=== PATIENT | male | born 1980 | race American Indian/Alaskan Native ===

== ENCOUNTER 2020-10-03 04:06 | Emergency (ER) | payer SELFPAY ==
--- NOTE | 2020-10-03 04:09 | DI.RAD.S_ITS ---
PROCEDURE: XR CHEST 1V INDICATIONS: Cough up blood TECHNIQUE: One view of the chest was acquired. COMPARISON: None. FINDINGS: Surgical changes and devices: None. Lungs and pleura: Lungs are clear. No pleural effusions or pneumothorax. Mediastinum: Mediastinal contours appear normal. Heart size is normal. Bones and chest wall: No suspicious bony lesions. Overlying soft tissues appear unremarkable. IMPRESSION: No acute cardiopulmonary disease process. Dictated by: Ilda Tony MD, PhD on 10/03/2020 at 9:02 Approved by: Ilda Tony MD, PhD on 10/03/2020 at 9:07
--- NOTE | 2020-10-03 04:09 | ED_ITS ---
HPI - General Adult General Chief complaint: Upper Respiratory Symptoms Stated complaint: Coughing up red/blood like Time Seen by Provider: 10/03/20 04:08 Source: patient Mode of arrival: Ambulatory Limitations: no limitations History of Present Illness HPI narrative: 40-year-old male with a history of high blood pressure here for evaluation of 1-2 days of a cough. No fevers. No sinus congestion. Slight sore throat. Was seen at the [facility] yesterday where he was evaluated. Was tested for COVID-19 which the patient reports was negative. He was given an albuterol inhaler and a spacer. No antibiotics. Returns today because this morning his cough is continued in he had a slight red tinge to the sputum. Related Data Previous Rx's Medication Instructions Recorded ibuprofen 600 mg PO Q6HP PRN #20 tab 10/19/16 meclizine 25 mg PO Q6HP PRN #20 tab 10/23/16 losartan 50 mg PO QDAY #30 tab 03/18/17 Allergies Allergy/AdvReac Type Severity Reaction Status Date / Time lisinopril [LISINOPRIL] AdvReac Intermediate cough Unverified 01/26/18 12:56 Review of Systems Constitutional Constitutional: Denies fever(s) and Denies headache(s) ENT Ears, Nose, Mouth, and Throat: Denies headache(s) and Reports sore throat Cardiovascular Cardiovascular: Denies chest pain and Denies dyspnea Respiratory Respiratory: Reports cough, Denies dyspnea and Reports wheezing Gastrointestinal Gastrointestinal: Denies abdominal pain Integumentary/Breasts Skin/Breast: Denies lesions and Denies rash Neurologic Neurologic: Denies headache(s) Hematologic/Lymphatic Hematologic/Lymphatic: Denies easy bleeding and Denies easy bruising Allergic/Immunologic Allergic/Immunologic: Denies urticaria and Reports wheezing Patient History Medical History Back pain Costochondritis, acute Elevated blood pressure reading without diagnosis of hypertension Vertigo Social History Smoking Status: Never smoker Exam Initial Vital Signs Initial Vital Signs: Vital Signs Temperature 98.9 F 10/03/20 04:15 Pulse Rate 103 H 10/03/20 04:15 Respiratory Rate 16 10/03/20 04:15 Blood Pressure 157/107 H 10/03/20 04:15 Pulse Oximetry 97 10/03/20 04:15 Const General: cooperative and comfortable Limitations: mental status not altered HENMT Head: normal to inspection and normocephalic Resp Effort & Inspection: normal respiratory effort Auscultation: wheezes Cardio Rate: tachycardic Rhythm: regular rhythm Skin Lesions: no lesions Rashes: no rashes Extrem General: capillary refill normal and No edema Psych Appearance: grossly normal and well kempt Course Orders Ordered: ED Orders 10/03/20 04:09 XR chest 1V Stat Vital Signs Vital signs: Vital Signs - 8 hr 10/03/20 04:15 Temperature 98.9 F Pulse Rate 103 H Respiratory Rate 16 Blood Pressure 157/107 H Pulse Oximetry 97 Medical Decision Making Imaging Data Chest x-ray: Attestation: I personally reviewed and interpreted this imaging study as f tammie: My Impression: No pneumonia, no pneumothorax MDM Narrative Medical decision making narrative: Patient is not hypoxic. Does have bilateral wheezing in the lung bases. He states that the albuterol inhaler that he received yesterday does help his symptoms. He was told by his doctor that he may have asthma however he does not have a specific diagnosis of this. He is somewhat hypertensive however is not taking his prescribed medications. Has been on lisinopril in the past but that caused a cough so he stopped that medicine several years ago. He is not having any fevers. He is not coughing up bloody sputum. He states that it was a red tinge to the sputum. I do suspect bronchitis. He states that that is with the provider yesterday told him. No indication for antibiotics. He will continue with the albuterol as needed. He was given return precautions. He expressed understanding agreement. Discharge Plan Departure Patient Disposition: Home Clinical Impression: Bronchitis Instructions: DI for Acute Bronchitis Activity Restrictions/Additional Instructions: recommend that you continue with the inhaler do a prescribed as directed as needed. You can purchase over the counter cough suppressant such as dextromethorphan or guaifenesin. Contact your primary provider for follow-up. Return to the emergency department for any new or worsening symptoms Prescriptions: No Action ibuprofen 600 MG tablet 600 mg PO Q6HP PRNQty: 20 RF: 0 meclizine 25 MG tablet 25 mg PO Q6HP PRNQty: 20 RF: 0 losartan 50 MG tablet 50 mg PO QDAY Qty: 30 RF: 1
[2020-10-03 04:15] VITALS: BP 157/107; PULSE 103; RESP 16; TEMP 37.2; O2SAT 97; BMI 31.4
[2020-10-03 04:22] VITALS: BP 152/104; PULSE 98; O2SAT 96
== END 2020-10-03 04:32 | disposition home or self-care (01) ==
PROVIDERS: Emergency Provider Emergency Medicine
DX: J40 Bronchitis, not specified as acute or chronic (principal); I10 Essential (primary) hypertension
CPT/HCPCS: 71045; 99283

== ENCOUNTER 2022-08-05 19:33 | Emergency (ER) | payer SELFPAY ==
[2022-08-05 19:45] VITALS: BP 157/103; PULSE 113; RESP 22; TEMP 36.3; O2SAT 98; BMI 33.5
--- NOTE | 2022-08-05 20:08 | DI.RAD.S_ITS ---
PROCEDURE: XR CHEST 1V INDICATIONS: Cough TECHNIQUE: One view of the chest was acquired. COMPARISON: Merged With [facility], CR, XR CHEST 1V, 10/03/2020, 4:13. FINDINGS: Surgical changes and devices: None. Lungs and pleura: Lungs are clear. No pleural effusions or pneumothorax. Mediastinum: Mediastinal contours appear normal. Heart size is normal. Bones and chest wall: No suspicious bony lesions. Overlying soft tissues appear unremarkable. IMPRESSION: No acute cardiopulmonary pathology. Dictated by: Kennedy Urbina M.D. on 08/05/2022 at 20:46 Approved by: Kennedy Urbina M.D. on 08/05/2022 at 20:46
--- NOTE | 2022-08-05 20:09 | ED.URI ---
HPI - URI/Sore Throat General Chief Complaint: Upper Respiratory Symptoms Stated Complaint: Tachy/SOB Time Seen by Provider: 08/05/22 20:02 Source: patient and EMS Mode of arrival: EMS History of Present Illness HPI Narrative: Patient here for cough cold congestion nausea and vomiting. Patient states his family has been sick for the past week. His kids are just getting over this illness. Patient started with cough cold congestion 1 week ago. He did not and family did not seek medical attention or any viral testing. Patient started with nausea and vomiting today. He gets dizzy when he vomits. However feels better with the dizziness. Still feels nauseous. Denies any chest pain. Blood pressure noted. He has been off his losartan for over a year. He does have a clinic but has not followed up for refills. He is on losartan 50 mg daily. Patient seen here September 2020 with similar complaints of cough and high blood pressure. Also had tachycardia on that visit as well. Was discharged home with diagnosis of bronchitis. Was given prescription of meclizine ibuprofen and refill of losartan. Related Data Previous Rx's Medication Instructions Recorded ibuprofen 600 mg tablet 600 mg PO Q6HP PRN #20 tabs 10/19/16 meclizine 25 mg tablet 25 mg PO Q6HP PRN #20 tabs 10/23/16 losartan 50 mg tablet 50 mg PO QDAY #30 tabs 03/18/17 losartan 50 mg tablet 50 mg PO DAILY #30 tabs 08/05/22 ondansetron 4 mg disintegrating 4 mg PO Q8H PRN nausea and 08/05/22 tablet vomiting #10 tabs Allergies Allergy/AdvReac Type Severity Reaction Status Date / Time lisinopril [LISINOPRIL] AdvReac Intermediate cough Verified 08/05/22 22:12 Review of Systems Review of Systems Narrative: GENERAL: Positive for chills, fatigue, malaise, fever, sweats. HEENT: Denies sinus pain, ear pain, sore throat RESPIRATORY: Denies dyspnea, positive for cough CARDIOVASCULAR: Denies chest pain, palpitations GASTROINTESTINAL: Positive for nausea, vomiting, negative for abdominal pain : Denies dysuria, frequency, hematuria MUSCULOSKELETAL: Positive for muscle or bony pain SKIN: Denies rash, skin lesions NEUROLOGIC: Denies weakness, numbness ROS Unobtainable: All systems reviewed & are unremarkable except as noted in HPI and below Patient History Medical History Back pain Costochondritis, acute Elevated blood pressure reading without diagnosis of hypertension Vertigo Social History Smoking Status: Never smoker Smoking Status: Never smoker Substance Use Type: marijuana Exam Narrative Exam Narrative: GENERAL: in no distress, not toxic not dyspneic HEAD: Normocephalic. EYES: Pupils equal round No scleral icterus. ENT: Mucous membranes moist. NECK: Trachea midline. CARDIOVASCULAR: Regular rate and rhythm without murmurs RESPIRATORY: Clear to auscultation. Breath sounds equal bilaterally. No wheezes, rales, or rhonchi. GASTROINTESTINAL: Abdomen soft, non-tender EXTREMITIES: No gross deformities. BACK: No flank tenderness. NEURO: AOx4. SKIN: Warm and dry PSYCH: Not anxious, is cooperative Initial Vital Signs Initial Vital Signs: Vital Signs Temperature 97.3 F L 08/05/22 19:45 Pulse Rate 113 H 08/05/22 19:45 Respiratory Rate 22 08/05/22 19:45 Blood Pressure 157/103 H 08/05/22 19:45 Pulse Oximetry 98 08/05/22 19:45 Oxygen Delivery Method 08/05/22 19:45 Course Course Course Narrative: No new issues during course of stay Orders Ordered: ED Orders 08/05/22 19:46 EKG-12 Lead Stat 08/05/22 20:08 XR chest 1V Stat 08/05/22 20:44 Complete Blood Count AUTO DIFF Stat Comprehensive Metabolic Panel Stat 08/05/22 20:47 Respiratory Panel (Film Array) Stat Discontinued Medications Sodium Chloride (Normal Saline 0.9%) 1,000 mls @ 1,000 mls/hr IV BOLUS ONE Stop: 08/05/22 21:06 Last Infusion: 08/05/22 22:12 Dose: 0 mls/hr Documented By: Admin: 08/05/22 21:02 Dose: 1,000 mls/hr Documented By: LISETH Losartan Potassium (Losartan 50 Mg Tablet) 50 mg PO NOW ONE Stop: 08/05/22 20:14 Last Admin: 08/05/22 21:02 Dose: 50 mg Documented By: LISETH Ondansetron HCl (Ondansetron 4 Mg/2 Ml Inj) 4 mg IV NOW ONE Stop: 08/05/22 20:08 Last Admin: 08/05/22 21:01 Dose: 4 mg Documented By: LISETH Ondansetron HCl (Ondansetron 4 Mg Odt Prepack) 1 bottle MISC SEEINSTR ONE Stop: 08/05/22 22:13 Last Admin: 08/05/22 22:26 Dose: Not Given Documented By: ALEX Ondansetron HCl (Ondansetron 4 Mg Odt Prepack) 1 bottle MISC SEEINSTR ONE Stop: 08/05/22 22:14 Last Admin: 08/05/22 22:27 Dose: 1 bottle Documented By: SANDRA Reevaluation(s) Reevaluation #1: Blood pressure 142/94. Patient feeling much better. Reviewed results with patient family, he will continue taking his blood pressure medication. He does have family doctor to follow up with. Zofran prepack sent home with patient as well as prescription for Zofran and losartan. All questions answered. Not toxic, they desire discharge home. They understand no antibiotics for viral infections Time: 22:13 Vital Signs Vital signs: Vital Signs - 8 hr 08/05/22 19:45 08/05/22 21:15 08/05/22 22:00 Temperature 97.3 F L Pulse Rate 113 H 98 H 94 H Respiratory Rate 22 18 12 Blood Pressure 157/103 H 150/103 H 142/94 H Pulse Oximetry 98 98 98 Oxygen Delivery Method Room Air Room Air Room Air MDM - URI/Sore Throat Differential Diagnosis Differential diagnosis: Likely upper respiratory infection, viral infection, bronchitis and other (Pneumonia) Lab Data Result diagrams: 08/05/22 20:44 08/05/22 20:44 Labs: Lab Results 08/05/22 08/05/22 08/05/22 Range/Units 20:44 20:44 20:47 WBC 10.4 (4.5-11.0) X10^3/uL RBC 5.61 (4.5-5.9) X10^6/uL Hgb 16.5 (13.5-17.5) g/dL Hct 47.8 (41-53) % MCV 85.1 (80-100) fL MCH 29.5 (26-34) PG MCHC 34.6 (30-36) % RDW 14.3 (11.6-14.8) % Plt Count 360 (150-400) X10^3/uL Neut % (Auto) 77.2 H (50-75) % Lymph % (Auto) 12.9 L (25-40) % [place] % (Auto) 6.6 (3-14) % Eos % (Auto) 2.2 (2-4) % Baso % (Auto) 1.1 (0-2) % Neut # (Auto) 8000 H (2328-4067) /uL Lymph # (Auto) 1300 (7510-2988) /uL [place] # (Auto) 700 (0-900) /uL Eos # (Auto) 200 (0-450) /uL Baso # (Auto) 100 (0-100) /uL Sodium 142 (137-145) mmol/L Potassium 3.9 (3.4-5.1) mmol/L Chloride 103 (98-107) mmol/L Carbon Dioxide 28 (22-32) mmol/L BUN 11 (9-20) mg/dL Creatinine 0.86 (0.66-1.25) mg/dL Estimated GFR > 60 (>60) mL/min BUN/Creatinine Ratio 12.8 (6-22) Glucose 112 H (70-100) mg/dL Calcium 9.5 (8.4-10.2) mg/dL Total Bilirubin 0.3 (0.2-1.3) mg/dL AST 29 (17-59) IU/L ALT 42 (<50) IU/L Alkaline Phosphatase 87 (38-126) U/L Total Protein 8.5 H (6.3-8.2) g/dL Albumin 4.8 (3.5-5.0) g/dL Globulin 3.7 (1.7-4.1) g/dL Albumin/Globulin Ratio 1.3 (1.0-2.8) Chlamy pneumoniae PCR Not detected (Not Detect) Adenovirus (PCR) Not detected (Not Detect) B. pertussis DNA (PCR) Not detected (Not Detecte) B.parapertussis DNA PCR Not detected (Not Detecte) Coronavirus OC43 (PCR) Not detected (Not Detect) Coronavirus HKU1 (PCR) Not detected (Not Detect) Coronavirus 229E (PCR) Not detected (Not Detect) SARS-CoV-2 (PCR) Not detected (Not Detecte) Coronavirus NL63 (PCR) Not detected (Not Detect) Human Metapneumovir PCR Not detected (Not Detect) Influenza Type A (PCR) Not detected (Not Detect) Influenza Type B (PCR) Not detected (Not Detect) M. pneumoniae (PCR) Not detected (Not Detect) Parainfluenza 1 (PCR) Not detected (Not Detect) Parainfluenza 2 (PCR) Not detected (Not Detect) Parainfluenza 3 (PCR) Not detected (Not Detect) Parainfluenza 4 (PCR) Not detected (Not Detect) RSV (PCR) Detected H (Not Detect) Entero/Rhino (PCR) Not detected (Not Detect) Imaging Data Chest x-ray: Radiologist's Impression: [address] [address] XRay Report Signed Patient: Gianni Short MR#: [id number] : 1980 Acct:[id number] Age/Sex: 42 / M Date of Service: 08/05/22 Loc: ED Accession Number: [id number] ?? Procedure: XR chest 1V Ordering Provider: Daryl Hassan MD PROCEDURE:? XR CHEST 1V ? INDICATIONS:? Cough ? TECHNIQUE:? One view of the chest was acquired.? ? COMPARISON:? [facility], , XR CHEST 1V, 10/03/2020, 4:13. ? FINDINGS:? ? Surgical changes and devices:? None.? ? Lungs and pleura:? Lungs are clear.? No pleural effusions or pneumothorax.? ? Mediastinum:? Mediastinal contours appear normal.? Heart size is normal.? ? Bones and chest wall:? No suspicious bony lesions.? Overlying soft tissues appear unremarkable.? ? IMPRESSION:? No acute cardiopulmonary pathology. ? ? Dictated by: Kennedy Urbina M.D. on 08/05/2022 at 20:46 ? ? Approved by: Kennedy Urbina M.D. on 08/05/2022 at 20:46 ? ECG Data Interpretation: Sinus tachycardia otherwise normal EKG rate 103 MDM Narrative Medical decision making narrative: Appropriate for discharge home. Laboratory studies and imaging otherwise reassuring. Blood pressure and heart rate improved with IV fluids nausea control as well as patient's home blood pressure medication. Return precautions reviewed with patient and family. Not toxic at discharge. They desire discharge home. Patient feels much better after treatment here. Discharge Plan Departure Patient Disposition: Home Clinical Impression: Respiratory syncytial virus (RSV) infection Instructions: DI for Respiratory Syncytial Virus -- Adults, DI for Vomiting -- Adult Activity Restrictions/Additional Instructions: Please continue your blood pressure medication. Did not skip or stop taking them. See your family doctor this week for re-evaluation. Return if worse if any questions or concerns. Keep well hydrated. Prescription for nausea medication has been sent home with you as well as prescription to your pharmacy. Prescription for refill for your blood pressure medication provided as well. Prescriptions: New ondansetron 4 mg tablet,disintegrating 4 mg PO Q8H PRN (Reason: nausea and vomiting) Qty: 10 0RF losartan 50 mg tablet 50 mg PO DAILY Qty: 30 0RF No Action ibuprofen 600 MG tablet 600 mg PO Q6HP PRNQty: 20 0RF meclizine 25 MG tablet 25 mg PO Q6HP PRNQty: 20 0RF losartan 50 MG tablet 50 mg PO QDAY Qty: 30 1RF Referrals: Daryl David PA-C [Primary Care Provider] - Visit Report Forms: Patient Portal/API
[2022-08-05] MEDS: ONDANSETRON 4 MG/2 ML INJ IV (21:01)
[2022-08-05] MEDS: SODIUM CHLORIDE 0.9% 1,000 ML 1000 ML IV (21:02)
[2022-08-05] MEDS: LOSARTAN 50 MG TABLET PO (21:02)
[2022-08-05 21:06] LABS: Add Manual Diff / Slide Review NO; Basophils Absolute Auto 100 /uL (0-100); Basophils Percent Auto 1.1 % (0-2); Eosinophils Absolute Auto 200 /uL (0-450); Eosinophils Percent Auto 2.2 % (2-4); Hematocrit 47.8 % (41-53); Hemoglobin 16.5 g/dL (13.5-17.5); Lymphocytes Absolute Auto 1300 /uL (1100-4500); Lymphocytes Percent Auto 12.9 % (25-40); Mean Corpuscular HGB Conc 34.6 % (30-36); Mean Corpuscular Hemoglobin 29.5 PG (26-34); Mean Corpuscular Volume 85.1 fL (80-100); Monocytes Absolute Auto 700 /uL (0-900); Monocytes Percent Auto 6.6 % (3-14); Neutrophils Absolute Auto 8000 /uL (1500-7000); Neutrophils Percent Auto 77.2 % (50-75); Platelet Count 360 X10^3/uL (150-400); Red Blood Cell Count 5.61 X10^6/uL (4.5-5.9); Red Cell Distribution Width 14.3 % (11.6-14.8); White Blood Cell Count 10.4 X10^3/uL (4.5-11.0)
[2022-08-05 21:15] VITALS: BP 150/103; PULSE 98; RESP 18; O2SAT 98
[2022-08-05 21:20] LABS: Alanine Aminotransferase 42 IU/L (<50); Albumin 4.8 g/dL (3.5-5.0); Albumin Globulin Ratio 1.3 (1.0-2.8); Alkaline Phosphatase 87 U/L (38-126); Aspartate Aminotransferase 29 IU/L (17-59); BUN Creatinine Ratio 12.8 (6-22); Bilirubin Total 0.3 mg/dL (0.2-1.3); Blood Urea Nitrogen 11 mg/dL (9-20); Calcium 9.5 mg/dL (8.4-10.2); Carbon Dioxide 28 mmol/L (22-32); Chloride 103 mmol/L (98-107); Estimated Glomerular Filt Rate > 60 mL/min (>60); Globulin 3.7 g/dL (1.7-4.1); Glucose 112 mg/dL (70-100); HEMOLYSIS < 15 (0-50); Potassium 3.9 mmol/L (3.4-5.1); Sodium 142 mmol/L (137-145); Total Protein 8.5 g/dL (6.3-8.2)
[2022-08-05 22:00] VITALS: BP 142/94; PULSE 94; RESP 12; O2SAT 98
[2022-08-05 22:00] LABS: Adenovirus Not Detected (Not Detect); B. parapertussis Not Detected (Not Detecte); Bordetella pertussis Not Detected (Not Detecte); Chlamydophila pneumoniae Not Detected (Not Detect); Coronavirus 229E Not Detected (Not Detect); Coronavirus HKU1 Not Detected (Not Detect); Coronavirus NL 63 Not Detected (Not Detect); Coronavirus OC43 Not Detected (Not Detect); Human Metapneumovirus Not Detected (Not Detect); Human Rhinovirus/Enterovirus Not Detected (Not Detect); Influenza A Not Detected (Not Detect); Influenza B Not Detected (Not Detect); Mycoplasma pneumoniae Not Detected (Not Detect); Parainfluenza Virus 1 Not Detected (Not Detect); Parainfluenza Virus 2 Not Detected (Not Detect); Parainfluenza Virus 3 Not Detected (Not Detect); Parainfluenza Virus 4 Not Detected (Not Detect); Respiratory Syncytial Virus Detected (Not Detect); SARS- CoV-2 Not Detected (Not Detecte)
[2022-08-05] MEDS: ONDANSETRON 4 MG ODT PREPACK 1 BOTTLE MISC (22:27)
== END 2022-08-05 22:27 | disposition home or self-care (01) ==
PROVIDERS: Emergency Provider Emergency Medicine; PCP Physician Assistant
DX: J06.9 Acute upper respiratory infection, unspecified (principal); B97.4 Respiratory syncytial virus as the cause of diseases classified elsewhere; R11.2 Nausea with vomiting, unspecified; Z20.822 Contact with and (suspected) exposure to COVID-19
CPT/HCPCS: 36415; 71045; 80053; 85025; 87633; 93005; 93010; 96361; 96374; 99284; J2405